=== PATIENT | male | born 1995 | race Two or more races ===

== ENCOUNTER 2017-01-05 12:54 | Emergency (ER) | payer OTHER ==
[~2017-01-05] VITALS: Ht 175.3 cm; Wt 74.8 kg
[2017-01-05 13:07] VITALS: BP 140/65
--- NOTE | 2017-01-05 13:38 | PHYS DOC ---
Past Medical History Past Medical History: No Pertinent History Past Surgical History: No Surgical History Alcohol Use: None Drug Use: None Adult General Chief Complaint Chief Complaint: Neck Pain HPI HPI 21-year-old male presenting to the emergency department today with neck pain that he describes as a throbbing pain he recently had a bridge placed and since then has been having severe pain in his neck intermittently. He denies fevers chills or any new rashes. He denies confusion. The pain is nonradiating. Review of systems is negative for chest pain shortness of breath abdominal pain nausea vomiting fevers or chills. All other review of systems is negative unless otherwise noted in history of present illness. Review of Systems Review of Systems SEE ABOVE. Allergies Allergies Allergies Coded Allergies Type Severity Reaction Last Updated Verified No Known Drug Allergies 01/05/17 No Physical Exam Physical Exam Constitutional: Well developed, well nourished, no acute distress, non-toxic appearance. HENT: Normocephalic, atraumatic, bilateral external ears normal, oropharynx moist, no oral exudates, nose normal. Eyes: PERRLA, EOMI, conjunctiva normal, no discharge. [] Neck: mild tenderness along the trapezius muscle at the insertion of the occiput. Normal range of motion present. No evidence of meningismus. Negative Kernig sign. Negative Brudzinski sign., supple, no stridor. Cardiovascular:Heart rate regular rhythm, no murmur [] Lungs & Thorax: Bilateral breath sounds clear to auscultation Abdomen: Bowel sounds normal, soft, no tenderness, no masses, no pulsatile masses. Skin: Warm, dry, no erythema, no rash. Back: No tenderness, no CVA tenderness. [] Extremities: No tenderness, no cyanosis, no clubbing, ROM intact, no edema. Neurologic: Alert and oriented X 3, normal motor function, normal sensory function, no focal deficits noted. [] Psychologic: Affect normal, judgement normal, mood normal. Current Patient Data Vital Signs Vital Signs Date Time Temp Pulse Resp B/P Pulse Ox O2 Delivery O2 Flow Rate FiO2 01/05/17 13:07 97.8 66 20 140/65 98 Room Air 97.8 EKG EKG [] Radiology/Procedures Radiology/Procedures [] Course & Med Decision Making Course & Med Decision Making Pertinent Labs and Imaging studies reviewed. (See chart for details) [] 21-year-old male presenting the emergency department with pain in his neck after having recent surgery. Nontoxic appearing. Likely related to recent surgery. Afebrile normal vital signs. Physical exam unremarkable. Patient provided pain medication to follow-up with primary care doctor over the next 2- 3 days. Dragon Disclaimer Dragon Disclaimer This electronic medical record was generated, in whole or in part, using a voice recognition dictation system. Departure Departure Impression: Primary Impression: Neck pain Disposition: HOME, SELF-CARE Condition: STABLE Referrals: NO PCP (PCP) NICOLE SALCEDO MD Additional Instructions: Thank you for allowing us to participate in your care today. Followup with your primary care physician in 3 days if your symptoms do not improve. If you do not have a primary care provider you can ask for a list of our primary care providers. Return to the emergency department you have any new or concerning findings. This should be evaluated by the primary care physician and any necessary consulting services for continued management within a few days after discharge. Return to emergency room if you have any new or concerning symptoms including but not limited to fever, chills, nausea, vomiting, intractable pain, any new rashes, chest pain, shortness of air, uncontrolled bleeding, difficulty breathing, and/or vision loss. You may have been prescribed medication that can change in your level of thinking and ability to operate machinery. These medications include hydrocodone and Ativan. Also, Benadryl has been known to do this as well. Be sure to check with your pharmacist and ask if the medications you've prescribed can affect your level of consciousness. I recommend not operating heavy machinery or driving while on medication such as these. Scripts Hydrocodone Bit/Acetaminophen (Hydrocodone-Apap 5-325 )1 Each Tablet1 Tab PO PRN Q6HRS PRN PAIN #15 TAB Be careful as this medication may cause you to be drowsy or tired. Do not drive on this medication. Prov:RONALD BANEGAS MD 01/05/17 RONALD BANEGAS MD Jan 05, 2017 13:38
[2017-01-05] MEDS ORDERED: HYDR-2666 PO (14:07)
[2017-01-06] MEDS ORDERED: PENI500T PO (21:26)
== END 2017-01-05 14:53 | disposition home or self-care (01) ==
LOC: ER 12:54
DX: M54.2 Cervicalgia (principal)
CPT/HCPCS: 99283

== ENCOUNTER 2017-01-06 19:20 | Emergency (ER) | payer OTHER ==
[~2017-01-06] VITALS: Ht 175.3 cm; Wt 63.5 kg
[~2017-01-06 19:20] MED LIST: HYDR-2666 PO
[2017-01-06 20:42] VITALS: BP 161/93
[2017-01-06] MEDS ORDERED: PENI500T PO (21:26)
--- NOTE | 2017-01-06 21:27 | PHYS DOC ---
Past Medical History Past Medical History: No Pertinent History Past Surgical History: No Surgical History Additional Information: Nonsmoker Alcohol Use: None Drug Use: None Adult General Chief Complaint Chief Complaint: DENTAL PROBLEM HPI HPI Patient is a 21 year old male who presents with dental pain for 3 days. He states that he had a temporary bridge placed on 01/02/17 at the [facility] [place]. He denies any fever or swelling around the affected tooth. He does not have a PCP. Review of Systems Review of Systems Constitutional: Denies fever or chills. [] Eyes: Denies change in visual acuity, redness, or eye pain. [] HENT: Denies ear pain, nasal congestion or sore throat. Reports dental pain. Musculoskeletal: Denies back pain or joint pain. [] Integument: Denies rash or skin lesions. [] Neurologic: Denies headache, focal weakness or sensory changes. [] Allergies Allergies Allergies Coded Allergies Type Severity Reaction Last Updated Verified No Known Drug Allergies 01/05/17 No Physical Exam Physical Exam Constitutional: Well developed, well nourished, no acute distress, non-toxic appearance. [] HENT: Normocephalic, atraumatic, bilateral external ears normal, oropharynx moist, no oral exudates, nose normal. Bilateral TMs without erythema or bulging. There is no posterior pharyngeal erythema or tonsillar edema. There is a temporary dental bridge of teeth #7-9 with tenderness over tooth #9. There is no surrounding gingival edema or dental abscess. Eyes: PERRLA, EOMI, conjunctiva normal, no discharge. [] Skin: Warm, dry, no erythema, no rash. [] Neurologic: Alert and oriented X 3, normal motor function, normal sensory function, no focal deficits noted. [] Psychologic: Affect normal, judgement normal, mood normal. [] Current Patient Data Vital Signs Vital Signs Date Time Temp Pulse Resp B/P Pulse Ox O2 Delivery O2 Flow Rate FiO2 01/06/17 20:42 98.6 71 18 98 Room Air 98.6 EKG EKG [] Radiology/Procedures Radiology/Procedures [] Course & Med Decision Making Course & Med Decision Making Pertinent Labs and Imaging studies reviewed. (See chart for details) [] Dragon Disclaimer Dragon Disclaimer This electronic medical record was generated, in whole or in part, using a voice recognition dictation system. Departure Departure Impression: Primary Impression: Dental implant pain Additional Impression: Presence of partial dental prosthetic device Disposition: 01 HOME, SELF-CARE Condition: STABLE Referrals: NO PCP (PCP) Patient Instructions: Dental Pain, [id number] Additional Instructions: Please take all of the prescribed antibiotics, even if your tooth is feeling better. Please take the pain medication prescribed at your previous visit to help control your pain. Please follow-up with your dentist as soon as possible. Return to the emergency department if you have any new or concerning symptoms. Scripts Penicillin V Potassium 500 Mg Tablet1 Tab PO TID #30 TAB Prov:SHAHLA VILLAFANA 01/06/17 Problem Qualifiers Primary Impression: Dental implant pain Encounter type: initial encounter Qualified Code: T85.848A - Pain due to other internal prosthetic devices, implants and grafts, initial encounter SHAHLA VILLAFANA Jan 06, 2017 21:27
== END 2017-01-06 21:35 | disposition home or self-care (01) ==
LOC: ER 19:20
DX: T85.848A Pain due to other internal prosthetic devices, implants and grafts, initial encounter (principal); Z97.2 Presence of dental prosthetic device (complete) (partial); M27.62 Post-osseointegration biological failure of dental implant; Y92.89 Other specified places as the place of occurrence of the external cause
CPT/HCPCS: 99283

== ENCOUNTER 2017-12-10 18:35 | Emergency (ER) | payer BC, OTHER ==
[2017-12-10] MEDS: ACETAMINOPHEN 325 MG TABLET. PO ×2 (19:56)
[2017-12-10] MEDS: IBUPROFEN 800 MG TABLET. PO ×2 (19:56)
[2017-12-10 20:46] LABS: INFLUENZA A PATIENT NEGATIVE (NEGATIVE); INFLUENZA B PATIENT NEGATIVE (NEGATIVE); OBC FLU VALID
[2017-12-10] MEDS: MORPHINE SULFATE 4 MG/ML DISP.SYRIN. IV ×2 (21:15)
[2017-12-10] MEDS ORDERED: CONTRAST GIVEN MC ×2 (21:15)
[2017-12-10 21:16] LABS: ADD MAN DIFF? YES; BASO % 0 % (0-3); EOS % 0 % (0-3); HEMATOCRIT 42.1 % (39.0-53.0); HEMOGLOBIN 14.2 g/dL (13.0-17.5); LYMPH # 0.3 x10^3/uL (1.0-4.8); LYMPH % 3 % (24-48); MEAN CORPUSCULAR HEMOGLOBIN 27 pg (25-35); MEAN CORPUSCULAR HGB CONC 34 g/dL (31-37); MEAN CORPUSCULAR VOLUME 81 fL (79-100); MONO # 0.8 x10^3/uL (0.0-1.1); MONO % 10 % (0-9); NEUT # 7.2 x10^3uL (1.8-7.7); NEUT % 86 % (31-73); PLATELET COUNT 195 x10^3/uL (140-400); RED BLOOD COUNT 5.23 x10^6/uL (4.30-5.70); WHITE BLOOD COUNT 8.4 x10^3/uL (4.0-11.0)
[2017-12-10 21:24] LABS: ANION GAP 10 (6-14); BLOOD UREA NITROGEN 9 mg/dL (8-26); BUN/CREATININE RATIO 13 (6-20); CALCIUM 9.3 mg/dL (8.5-10.1); CARBON DIOXIDE 26 mmol/L (21-32); CHLORIDE 99 mmol/L (98-107); CREATININE 0.7 mg/dL (0.7-1.3); GFR 142.4; GLUCOSE 94 mg/dL (70-99); POTASSIUM 3.7 mmol/L (3.5-5.1); SODIUM 135 mmol/L (136-145)
[2017-12-10 21:29] LABS: ALBUMIN 4.2 g/dL (3.4-5.0); ALBUMIN/GLOBULIN RATIO 1.1 (1.0-1.7); ALK PHOS 104 U/L (46-116); ALT (SGPT) 24 U/L (16-63); AST (SGOT) 16 U/L (15-37); LIPASE 70 U/L (73-393); TOTAL BILIRUBIN 1.2 mg/dL (0.2-1.0); TOTAL PROTEIN 7.9 g/dL (6.4-8.2)
[2017-12-10] MEDS: IOHEXOL 300 MG/ML 100ML VIAL. IV ×2 (21:54)
[2017-12-10 22:08] LABS: % BANDS 6 % (0-9); % BASOS 1 % (0-3); % LYMPHS 7 % (24-48); % MONOS 14 % (0-10); % SEGS 72 % (35-66); PLT ESTIMATE ADEQUATE (ADEQUATE)
[2017-12-10] MEDS: ONDANSETRON PF 4 MG/2 ML VIAL. IV ×2 (22:12)
[2017-12-10] MEDS: IV NORMAL SALINE 1000ML BAG 1,000 ML IV ×2 (22:13)
== END 2017-12-10 23:26 | disposition home or self-care (01) ==
LOC: ER 23:26
DX: J02.9 Acute pharyngitis, unspecified (principal); R10.31 Right lower quadrant pain
CPT/HCPCS: 36415; 74177; 80053; 83690; 85007; 85025; 87804; 87804-59; 96361; 96374; 99285-25; J2405; J7030; Q9967

== ENCOUNTER 2021-12-30 20:34 | Emergency (ER) | payer SELFPAY ==
[~2021-12-30] VITALS: Ht 177.8 cm; Wt 84.3 kg
[~2021-12-30 20:34] MED LIST changes: +AMOX1TAB61 PO; -HYDR-2666 PO; +HYDR-2761 PO; +PENI500T PO; +PRED20TA PO
[2021-12-30] MEDS ORDERED: MUPIROCIN 2 % OINTMENT 22GM TUBE. TP STA (21:13)
[2021-12-30] MEDS ORDERED: DIPHTH,PERTUSS(ACELL),TET TOX 0.5 ML DISP.SYRIN. VAX IM ONE (21:15)
[2021-12-30] MEDS ORDERED: HYDR-2761 PO (21:20)
[2021-12-30] MEDS ORDERED: NAPR-514 PO (21:20)
[2021-12-30] MEDS ORDERED: CEPH500T PO (21:20)
--- NOTE | 2021-12-30 21:21 | PHYS DOC ---
Past Medical History Past Medical History: No Pertinent History Past Surgical History: No Surgical History Smoking Status: Never Smoker Alcohol Use: None Drug Use: None General Adult EDM: Chief Complaint: ABSCESS HPI: HPI: Patient is a 26 year old male with no significant medical history presenting today concerned he had something swollen on his coccyx/buttocks, symptoms have been there for 2 days. Denies any injuries. Denies any fever. Patient states the area is warm and tender to touch. Review of Systems: Review of Systems: constitutional: Denies fever or chills. [] Musculoskeletal: Denies back pain or joint pain. [] Integument: Reports something swelling on his coccyx/buttocks area for 2 days Neurologic: Denies headache, focal weakness or sensory changes. [] Psychiatric: Denies depression or anxiety. [] Heart Score: C/O Chest Pain: N/A Risk Factors: Risk Factors: DM, Current or recent (<one month) smoker, HTN, HLP, family history of CAD, obesity. Risk Scores: Score 0 - 3: 2.5% MACE over next 6 weeks - Discharge Home Score 4 - 6: 20.3% MACE over next 6 weeks - Admit for Clinical Observation Score 7 - 10: 72.7% MACE over next 6 weeks - Early Invasive Strategies Allergies: Allergies: Allergies Coded Allergies Type Severity Reaction Last Updated Verified No Known Drug Allergies 12/30/21 No Physical Exam: PE: Constitutional: Well developed, well nourished, no acute distress, non-toxic appearance. [] Skin: Left inner buttock with a firm none indurated area roughly 1 x 0.5 cm, there is a similar lesion on the right buttock, none of them has any fluctuance. They are both warm, tender to touch. Likely an early abscess formation Back: No tenderness, no CVA tenderness. [] Extremities: No tenderness, no cyanosis, no clubbing, ROM intact, no edema. [] Neurologic: Alert and oriented X 3, normal motor function, normal sensory function, no focal deficits noted. [] Psychologic: Affect normal, judgement normal, mood normal. [] Current Patient Data: Vital Signs: Vital Signs Date Time Temp Pulse Resp B/P (MAP) Pulse Ox O2 Delivery O2 Flow Rate FiO2 12/30/21 20:36 98.9 89 18 132/85 (101) 98 Room Air 98.9 EKG: EKG: [] Radiology/Procedures: Radiology/Procedures: [] Course & Med Decision Making: Course & Med Decision Making Pertinent Labs and Imaging studies reviewed. (See chart for details) This a 26-year-old male patient presenting to the ED today with an abscess on the right and left buttock. None of them are ready to drain. Tetanus is updated. Given mupirocin cream in the ED as well as prescription for cephalexin. Recommended warm compresses to the area. Provided return precautions. Dragon Disclaimer: Dragon Disclaimer: This electronic medical record was generated, in whole or in part, using a voice recognition dictation system. Departure Departure Impression: Primary Impression: Abscess of buttock, right Additional Impression: Abscess of buttock, left Disposition: 01 HOME / SELF CARE / HOMELESS Condition: STABLE Referrals: NO PCP (PCP) JACLYN JESUS MD follow up in 1-2 with your doctor or the provided surgeon Patient Instructions: Abscess Additional Instructions: You have an abscess on your buttocks. Please apply warm compresses/heating pad to the area 3 times a day. Please use the prescribed ointment twice a day on the areas. Please take the prescribed antibiotic as ordered until completed. Follow-up with your doctor or the provided surgeon in 1-2 weeks Scripts Hydrocodone Bit/Acetaminophen (HYDROCODONE-APAP 5-325 ) 1 Tab Tablet 1 TAB PO PRN Q6HRS PRN for PAIN, #20 TAB 0 Refills Prov: OLESYA SMITH APRN 12/30/21 Naproxen (NAPROXEN) 500 Mg Tablet 1 TAB PO BID for pain, #20 TAB 0 Refills Prov: OLESYA SMITH [employer] 12/30/21 Cephalexin (CEPHALEXIN) 500 Mg Tablet 1 TAB PO TID, #30 TAB Prov: OLESYA SMITH [employer] 12/30/21 OLESYA SMITH [employer] Dec 30, 2021 21:21
[2021-12-30 21:22] VITALS: BP 130/82
== END 2021-12-30 21:33 | disposition home or self-care (01) ==
LOC: ER 20:34
DX: L02.31 Cutaneous abscess of buttock (principal)
CPT/HCPCS: 90471; 90715; 99283-25

== ENCOUNTER 2022-01-03 00:32 | Emergency (ER) | payer SELFPAY ==
[~2022-01-03] VITALS: Ht 180.3 cm; Wt 83.5 kg
[~2022-01-03 00:32] MED LIST changes: +CEPH500T PO; +NAPR-514 PO
--- NOTE | 2022-01-03 01:43 | PHYS DOC ---
Past Medical History Past Medical History: No Pertinent History Past Surgical History: No Surgical History Smoking Status: Never Smoker Alcohol Use: None Drug Use: None General Adult EDM: Chief Complaint: ABSCESS HPI: HPI: Patient is a 26 year old male patient who presents to the ED today with an abscess on his buttocks that began on Friday. He was seen in the ED on Friday and discharged on cephalexin and mupirocin. He states he lost the mupirocin. He called the ED several times today trying to get a prescription of mupirocin. I was able to talk to him and sent a prescription for mupirocin and Bactroban to his pharmacy around 7 pm. He states he used the mupirocin today and felt more pain to his buttocks and was worried the abscess is getting worse and came back to the ED. He was verbally aggressive at the front end specialist. Review of Systems: Review of Systems: Constitutional: Denies fever or chills. [] Musculoskeletal: Denies back pain or joint pain. [] Integument: Reports buttock abscess Neurologic: Denies headache, focal weakness or sensory changes. [] Psychiatric: Denies depression or anxiety. [] Heart Score: C/O Chest Pain: N/A Risk Factors: Risk Factors: DM, Current or recent (<one month) smoker, HTN, HLP, family history of CAD, obesity. Risk Scores: Score 0 - 3: 2.5% MACE over next 6 weeks - Discharge Home Score 4 - 6: 20.3% MACE over next 6 weeks - Admit for Clinical Observation Score 7 - 10: 72.7% MACE over next 6 weeks - Early Invasive Strategies Current Medications: Current Medications Medications (Trade) Dose Ordered Sig/Le Start Time Stop Time Status Last Admin Dose Admin Ceftriaxone Sodium (Rocephin Im) 1 gm 1X ONCE 01/03/22 02:00 01/03/22 02:01 Lidocaine HCl (Xylocaine-Mpf 1% 2ml Vial) 2 ml 1X ONCE 01/03/22 02:00 01/03/22 02:01 Allergies: Allergies: Allergies Coded Allergies Type Severity Reaction Last Updated Verified No Known Drug Allergies 01/03/22 No Physical Exam: PE: Constitutional: Well developed, well nourished, no acute distress, non-toxic appearance. [] Skin: Left inner buttock with a palpable nonfluctuant abscess roughly 5 x 2 cm, similar lesion noted on the left buttock. Both of them are extremely tender. Unable to touch the evidence of well to try and find an area of fluctuance for draining because patient cannot tolerate anything of anyone touching his buttocks. I couldn't even touch his coccyx to see if there is any fluctuance to that region. Back: No tenderness, no CVA tenderness. [] Extremities: No tenderness, no cyanosis, no clubbing, ROM intact, no edema. [] Neurologic: Alert and oriented X 3, normal motor function, normal sensory function, no focal deficits noted. [] Psychologic: Affect normal, judgement normal, mood normal. [] Current Patient Data: Vital Signs: Vital Signs Date Time Temp Pulse Resp B/P (MAP) Pulse Ox O2 Delivery O2 Flow Rate FiO2 01/03/22 00:35 98.1 85 20 121/68 (85) 100 Room Air 98.1 EKG: EKG: [] Radiology/Procedures: Radiology/Procedures: [] Course & Med Decision Making: Course & Med Decision Making Pertinent Labs and Imaging studies reviewed. (See chart for details) This a 26-year-old male patient who presents the ED today with an abscess on his buttock that began on Friday. He was started on cephalexin and mupirocin on Friday, he lost the mupirocin. He called the ED today, I called in a prescription for Bactrim and he wanted the mupirocin prescription again which I called into the pharmacy. He used to used Mupirocin and developed pain on the abscess region and came to the ED. Offered patient admission. Informed him if this abscess has not improved since Friday he needs to be admitted. Patient refused, he states he has a [place]ization ceremony tomorrow and he does not want to miss it. He refused Rocephin IM in the ED. Encourage him to continue taking the Bactrim p.o. that he started today and finish the cephalexin. Instructed him to return to the ED at any point symptoms worsen. Follow-up with the PCP, he states he has an appointment tomorrow with his doctor at 2:30 pm Jennifer Disclaimer: Jennifer Disclaimer: This electronic medical record was generated, in whole or in part, using a voice recognition dictation system. Departure Departure Impression: Primary Impression: Abscess of buttock, left Additional Impression: Abscess of buttock, right Disposition: 01 HOME / SELF CARE / HOMELESS Condition: STABLE Referrals: NO PCP (PCP) JACLYN JESUS MD follow up as soon as you can Patient Instructions: Abscess Additional Instructions: You were evaluated in the emergency room with an abscess on your buttocks. Please continue taking the cephalexin and Bactrim. Also continue using the mupirocin cream. Continue applying warm compresses to your buttocks 3-4 times a day. You stated you have an appointment with your doctor tomorrow. Ensure you follow-up. We also provided you a general surgeon who can call him and set up a follow-up as an outpatient OLESYA SMITH APRN Jan 03, 2022 01:43
[2022-01-03] MEDS ORDERED: LIDOCAINE 1% PF 2 ML VIAL. INJ ONE (02:00)
[2022-01-03] MEDS ORDERED: cefTRIAXone IM 1 GM VIAL IM ONE (02:00)
== END 2022-01-03 01:54 | disposition home or self-care (01) ==
LOC: ER 00:32
DX: L02.31 Cutaneous abscess of buttock (principal)
CPT/HCPCS: 99282